=== PATIENT | male | born 1945 | race Two or more races ===

== ENCOUNTER 2024-11-08 22:02 | Emergency (ER) | payer OTHER ==
[~2024-11-08] VITALS: Ht 175.3 cm; Wt 175.0 kg
[2024-11-08 22:02] VITALS: TEMP 97.7
--- NOTE | 2024-11-08 22:20 | ED.PDOC ---
History of Present Illness HPI Comments 79-year-old male who came to ER via EMS for low blood pressure. Patient states he was discharged earlier today at [facility] due to GI issues. At home, patient developed sudden onset dizziness and weakness, upon arrival paramedics patient has a blood pressure 55/39 mm Hg. Patient was given 500 cc of IV fluids, and blood pressure improved to 132/76 mm Hg. No active GI bleeding was noted. Chief Complaint: Low blood pressure Time Seen by MD: 22:20 Reviewed Notes: Human Resources Admin Notes Allergies: Coded Allergies: NO KNOWN ALLERGIES (Unverified , 11/08/24) Information Source: Patient, Emergency Med Personnel Mode of Arrival: EMS Severity: Moderate Timing: Hours Duration: Since onset Past Medical History PAST MEDICAL HISTORY: DM Surgical History: Cholecystectomy Surgical History (Other): Prostate surgery Family History Family History: Reviewed,noncontributory to illness Social History Smoker: Non-Smoker Alcohol: Denies ETOH Use Drugs: Denies Drug Use Lives In: Home Constitutional: denies: chills, diaphoresis, fatigue, fever, malaise, sweats, weakness, others EENTM: denies: blurred vision, double vision, ear bleeding, ear discharge, ear drainage, ear pain, ear ringing, eye pain, eye redness, hearing loss, mouth pain, mouth swelling, nasal discharge, nose bleeding, nose congestion, nose pain, photophobia, tearing, throat pain, throat swelling, voice changes, others Respiratory: denies: cough, hemoptysis, orthopnea, SOB at rest, shortness of breath, SOB with excertion, stridor, wheezing, others Cardiovascular: denies: chest pain, dizzy spells, diaphoresis, Dyspnea on exertion, edema, irregular heart beat, left arm pain, lightheadedness, palpitations, PND, syncope, others Gastrointestinal: denies: abdomen distended, abdominal pain, blood streaked bowels, constipated, diarrhea, dysphagia, difficulty swallowing, hematemesis, melena, nausea, poor appetite, poor fluid intake, rectal bleeding, rectal pain, vomiting, others Genitourinary: denies: burning, dysuria, flank pain, frequency, hematuria, incontinence, penile discharge, penile sore, pain, testicle pain, testicle swelling, urgency, others Neurological: reports: dizziness, weakness; denies: fainting, headache, left sided numbness, left sided weakness, numbness, paresthesia, pre-existing deficit, right sided numbness, right sided weakness, seizure, speech problems, tingling, tremors, others Musculoskeletal: denies: back pain, gout, joint pain, joint swelling, muscle pain, muscle stiffness, neck pain, others Integumetry: denies: bruises, change in color, change in hair/nails, dryness, laceration, lesions, lumps, rash, wounds, others Allergic/Immunocompromised: denies: Difficulty Healing, Frequent Infections, Hives, Itching, others Hematologic/Lymphatic: denies: anemia, blood clots, easy bleeding, easy bruising, swollen glands, others Endocrine: denies: excessive hunger, excessive sweating, excessive thirst, excessive urination, flushing, intolerance to cold, intolerance to heat, unexplained weight gain, unexplained weight loss, others Psychiatric: denies: anxiety, bipolar disorder, depression, hopeless, panic disorder, schizophrenia, sleepless, suicidal, others Physical Exam General Appearance: No Apparent Distress, Normal HEENT: Normal ENT Inspection, Pharynx Normal, TMs Normal Neck: Full Range of Motion, Non-Tender, Normal, Normal Inspection Respiratory: Chest Non-Tender, Lungs Clear, No Accessory Muscle Use, No Respiratory Distress, Normal Breath Sounds Cardiovascular: No Edema, No JVD, No Murmur, No Gallop, Normal Peripheral Pu lses, Regular Rate/Rhythm Breast Exam: Deferred Gastrointestinal: No Organomegaly, Non Tender, No Pulsatile Mass, Normal Bowel Sounds, Soft Genitalia: Deferred Pelvic: Deferred Rectal: Deferred Extremities: No calf tenderness, Normal capillary refill, Normal inspection, Normal range of motion, Non-tender, No pedal edema Musculoskeletal : Apperance: Normal Neurologic: Alert, agency recruiter II-XII nml as Tested, No Motor Deficits, Normal Affect, Normal Mood, No Sensory Deficits Cerebellar Function: Normal Reflexes: Normal Skin: Dry, Normal Color, Warm Lymphatic: No Adenopathy Was a procedure done? Was a procedure done?: No Differential Dx Considerations may include: Anemia, electrolyte imbalance, dehydration, hypotension X-Ray, Labs, Meds, VS Vital Signs Date Time Temp Pulse Resp B/P (MAP) Pulse Ox O2 Delivery O2 Flow Rate FiO2 11/09/24 00:00 68 18 132/76 (94) 96 11/08/24 22:06 68 11/08/24 22:02 97.7 68 18 132/76 93 97.7 Lab Test 11/08/24 22:24 Range/Units White Blood Count 8.6 4.4-10.8 10^3/uL Red Blood Count 4.90 4.5-5.90 10^6/uL Hemoglobin 14.8 13.5-17.5 g/dL Hematocrit 43.0 41.0-53.0 % Mean Corpuscular Volume 87.7 80.0-100.0 fL Mean Corpuscular Hemoglobin 30.2 28.0-32.0 pg Mean Corpuscular Hemoglobin Concent 34.5 32.0-36.0 g/dL Red Cell Distribution Width 13.4 11.8-14.3 % Platelet Count 503 H 140-450 10^3/uL Mean Platelet Volume 6.9 6.9-10.8 fL Neutrophils (%) (Auto) 63.8 37.0-80.0 % Lymphocytes (%) (Auto) 24.3 10.0-50.0 % Monocytes (%) (Auto) 8.6 0.0-12.0 % Eosinophils (%) (Auto) 2.6 0.0-7.0 % Basophils (%) (Auto) 0.7 0.0-2.0 % Neutrophils # (Auto) 5.5 1.6-8.6 10 ^3/uL Lymphocytes # (Auto) 2.1 0.4-5.4 10 ^3/uL Monocytes # (Auto) 0.7 0-1.3 10 ^3/uL Eosinophils # (Auto) 0.2 0-0.8 10 ^3/uL Basophils # (Auto) 0.1 0-0.2 10 ^3/uL Nucleated Red Blood Cells 0.1 % Sodium Level 140 136-145 mmol/L Potassium Level 3.7 3.5-5.1 mmol/L Chloride Level 104 98-107 mmol/L Carbon Dioxide Level 28 20-31 mmol/L Anion Gap 8 5-15 Blood Urea Nitrogen < 5 L 9-23 mg/dL Creatinine 1.13 0.700-1.30 mg/dL Glomerular Filtration Rate Calc 66 >90 mL/min BUN/Creatinine Ratio 4.4 L 10.0-20.0 Serum Glucose 118 H 74-106 mg/dL Lactic Acid Level 1.1 0.4-2.0 mmol/L Calcium Level 8.5 L 8.7-10.4 mg/dL Magnesium Level 2.1 1.6-2.6 mg/dL Total Bilirubin 0.4 0.2-1.0 mg/dL Aspartate Amino Transferase (AST) 84 H 13-40 U/L Alanine Aminotransferase (ALT) 66 H 7-40 U/L Alkaline Phosphatase 68 46-116 U/L Troponin I High Sensitivity < 3 L </=54 ng/L Total Protein 7.4 5.7-8.2 g/dL Albumin 4.0 3.2-4.8 g/dL Current Medications Medications (Trade) Dose Ordered Sig/Dahiana Route Start Time Stop Time Status Last Admin Sodium Chloride 1,000 ml @ 1,000 mls/hr Q1H ONCE IVB 11/08/24 22:15 11/08/24 23:14 DC 11/08/24 22:31 Time of 1ST Reevaluation: 22:17 Reevaluation 1ST: Unchanged Patient Education/Counseling: Diagnosis, Treatment Family Education/Counseling: No Family Present SEPSIS Sepsis Screen Physician Orders Urinalysis (11/08/24 22:11) Blood Culture (11/08/24 22:11) Chest Portable (11/08/24 22:11) Vital Signs Date Time Temp Pulse Resp B/P (MAP) Pulse Ox O2 Delivery O2 Flow Rate FiO2 11/09/24 00:00 68 18 132/76 (94) 96 11/08/24 22:06 68 11/08/24 22:02 97.7 68 18 132/76 93 97.7 Laboratory Tests Test 11/08/24 22:24 Lactic Acid Level 1.1 mmol/L (0.4-2.0) White Blood Count 8.6 10^3/uL (4.4-10.8) Medications Medications Dose Ordered Sig/Dahiana Route Start Time Stop Time Status Last Admin Dose Admin Sodium Chloride 1,000 ml @ 1,000 mls/hr Q1H ONCE IVB 11/08/24 22:15 11/08/24 23:14 DC 11/08/24 22:31 Departure 1 Departure Time of Disposition: 00:10 Impression: Primary Impression: Dizziness Disposition: 01 HOME / SELF CARE / HOMELESS Condition: Stable Discharged With: Self, Spouse Critical Care Note Critical Care Time?: No Stability Stability form required: No Heart Score Heart Score: Heart Score Response (Comments) Value History N/A 0 EKG N/A 0 Age N/A 0 Risk Factors N/A 0 Troponin N/A 0 Total 0 I personally scribed for JERICHO SNIDER MD ([email or web address]) on 11/08/24 at 22:20. Electronically submitted by Adarsh Landry ([email or web address]). JERICHO SNIDER MD Nov 08, 2024 22:20
[2024-11-08] MEDS: SODIUM CHLORIDE 0.9% 1,000 ML IVB ONE (22:31)
[2024-11-08 22:41] LABS: Hemoglobin 14.8 g/dL (13.5-17.5); Nucleated Red Blood Cells % 0.1 %
[2024-11-08 22:42] LABS: Mean Corpuscular Volume 87.7 fL (80.0-100.0)
[2024-11-08 22:43] LABS: Hematocrit 43.0 % (41.0-53.0); Mean Corpuscular Hemoglobin 30.2 pg (28.0-32.0)
[2024-11-08 22:57] LABS: Alanine Aminotransferase 66 U/L (7-40); Albumin 4.0 g/dL (3.2-4.8); Alkaline Phosphatase 68 U/L (46-116); Anion Gap 8 (5-15); BUN/Creatinine Ratio 4.4 (10.0-20.0); Bilirubin, Total 0.4 mg/dL (0.2-1.0); Blood Urea Nitrogen < 5 mg/dL (9-23); Calcium 8.5 mg/dL (8.7-10.4); Carbon Dioxide 28 mmol/L (20-31); Chloride 104 mmol/L (98-107); Glucose 118 mg/dL (74-106); Magnesium 2.1 mg/dL (1.6-2.6); Potassium 3.7 mmol/L (3.5-5.1); Sodium 140 mmol/L (136-145); Total Protein 7.4 g/dL (5.7-8.2)
--- NOTE | 2024-11-08 23:17 | ECG ---
[facility] Test Date: 2024-11-08 Test Time: 22:06:18 Pat Name: LEAH CUMMINS Department: Room: Gender: M Psychiatric Nurse: [facility] : 1945 Requested By: JERICHO SNIDER Order Number: [id number] Reading MD: Vinicio Guevara Measurements Intervals Fisher Rate: 68 P: 67 OR: 181 QRS: 64 QRSD: 101 T: 53 QT: 420 QTc: 447 Interpretive Statements Sinus rhythm Borderline T wave abnormalities Electronically Signed On 11-09-2024 16:45:39 PDT by Vinicio Guevara Please click the below link to view image of tracing.
[2024-11-09] VITALS: BP 132/76; PULSE 68; RESP 18; O2SAT 96
--- NOTE | 2024-11-09 00:12 | DVH ---
EXAMINATION: XY CHEST PORTABLE CLINICAL HISTORY: SOB COMPARISON: None FINDINGS: Central and lower lung field interstitial prominence. No dominant consolidation. No sizable pleural e ffusion or pneumothorax. The cardiomediastinal silhouette appears within normal limits given techniq ue. IMPRESSION: Interstitial prominence is relatively nonspecific but can be seen with edema, reactive airway changes as well as atypical / viral infection. Please correlate clinically.
== END 2024-11-09 01:44 | disposition home or self-care (01) ==
LOC: EDBD 22:02 → ER 22:02
DX: R42 Dizziness and giddiness (principal); E11.9 Type 2 diabetes mellitus without complications; Z90.49 Acquired absence of other specified parts of digestive tract
CPT/HCPCS: 36415; 71045; 80053; 83605; 83735; 84484; 85025; 87040; 93005; 96360; 96361; 99285; J7030